=== PATIENT | male | born 1950 | race Caucasian/White ===

== ENCOUNTER 2020-12-25 07:08 | Emergency (ER) | payer MEDICARE ==
[~2020-12-25] VITALS: Ht 180.3 cm; Wt 86.2 kg
== END 2020-12-25 10:20 | disposition home or self-care (01) ==
LOC: ED 07:08
DX: R04.0 Epistaxis (principal); I10 Essential (primary) hypertension; E11.9 Type 2 diabetes mellitus without complications; E78.5 Hyperlipidemia, unspecified

== ENCOUNTER 2022-05-17 03:09 | Emergency (ER) | payer MEDICARE ==
[~2022-05-17] VITALS: Ht 180.3 cm; Wt 79.4 kg
[2022-05-17 04:36] LABS: BASO % 0.5 % (0.0-1.0); EOS # 0.1 10*3/uL (0.0-0.4); HEMATOCRIT 38.7 % (42.0-52.0); LYMPH % 11.9 % (27.0-41.0); MEAN CELL VOLUME 94.2 fl (80.0-94.0); MEAN CORPUSCULAR HGB 30.4 pg (27.0-31.0); MEAN CORPUSCULAR HGB CONC 32.3 g/dl (33.0-37.0); MEAN PLATELET VOLUME 8.9 fl (9.6-12.3); MONO # 0.7 10*3/uL (0.1-1.0); MONO % 8.4 % (3.0-9.0); NEUT # 6.7 10*3/uL (2.3-7.9); NEUT % 77.9 % (47.0-73.0); PLATELET COUNT AUTOMATED 246 10*3/uL (130-400); RED BLOOD COUNT 4.11 10*6/uL (4.50-5.90); WHITE BLOOD COUNT 8.6 10*3/uL (4.8-10.8)
[2022-05-17] MEDS ORDERED: AUGMENTIN 875-875 MG PO ×2 (05:06)
== END 2022-05-17 05:25 | disposition home or self-care (01) ==
LOC: ED 03:09
PROVIDERS: Emergency Medicine
DX: R04.0 Epistaxis (principal); I10 Essential (primary) hypertension

== ENCOUNTER 2023-03-29 23:47 | Emergency (ER) | payer MEDICARE ==
[~2023-03-29] VITALS: Ht 180.3 cm; Wt 84.8 kg
[~2023-03-29 23:47] MED LIST: AUGMENTIN 875-875 MG PO
[2023-03-30 01:20] LABS: BASO % 0.4 % (0.0-1.0); EOS # 0.1 10*3/uL (0.0-0.4); EOS % 0.6 % (1.0-4.0); HEMATOCRIT 41.1 % (42.0-52.0); LYMPH # 0.9 10*3/uL (1.3-4.4); LYMPH % 9.2 % (27.0-41.0); MEAN CELL VOLUME 95.4 fl (80.0-94.0); MEAN CORPUSCULAR HGB 31.3 pg (27.0-31.0); MEAN CORPUSCULAR HGB CONC 32.8 g/dl (33.0-37.0); MEAN PLATELET VOLUME 10.3 fl (9.6-12.3); MONO # 0.7 10*3/uL (0.1-1.0); MONO % 6.7 % (3.0-9.0); NEUT # 8.4 10*3/uL (2.3-7.9); NEUT % 82.8 % (47.0-73.0); PLATELET COUNT AUTOMATED 194 10*3/uL (130-400); RED BLOOD COUNT 4.31 10*6/uL (4.50-5.90); RED CELL DISTRI WIDTH 12.5 % (0-14.5); WHITE BLOOD COUNT 10.2 10*3/uL (4.8-10.8)
[2023-03-30 01:44] LABS: ALKALINE PHOSPHATASE 78 U/L (46-116); BUN 18 mg/dl (9-23); CHLORIDE 103 mmol/L (98-107); SGPT/ALT 16 U/L (10-49); TOTAL PROTEIN 6.9 gm/dL (6.0-8.0)
== END 2023-03-30 04:34 | disposition home or self-care (01) ==
LOC: ED 23:47
PROVIDERS: Emergency Medicine
DX: I10 Essential (primary) hypertension (principal); R41.9 Unspecified symptoms and signs involving cognitive functions and awareness; E11.9 Type 2 diabetes mellitus without complications; E78.5 Hyperlipidemia, unspecified

== ENCOUNTER 2023-07-16 08:38 | Emergency (ER) | payer MEDICARE ==
[~2023-07-16] VITALS: Wt 80.7 kg
[2023-07-16] MEDS ORDERED: ZITHROMAX250 MG PO (09:55)
[2023-07-16] MEDS ORDERED: PREDNISONE50 MG PO (09:55)
== END 2023-07-16 10:40 | disposition home or self-care (01) ==
LOC: ED 08:38
DX: J02.9 Acute pharyngitis, unspecified (principal); I10 Essential (primary) hypertension; E11.9 Type 2 diabetes mellitus without complications; E78.5 Hyperlipidemia, unspecified